=== PATIENT | male | born 1995 | race Caucasian/White ===

== ENCOUNTER 2018-04-04 11:34 | Emergency (ER) | payer BC ==
[2018-04-04] MEDS ORDERED: IBUPROFEN 600 MG TAB PO ONE (12:18)
[2018-04-04] MEDS ORDERED: ACETAMINOPHEN 500 MG TAB PO ONE (12:18)
[2018-04-04] MEDS ORDERED: NS 1,000 ML IV ONE (13:01)
[2018-04-04 13:18] LABS: PLATELET COUNT 181 10^3/uL (150-400)
--- NOTE | 2018-04-04 13:34 | EDPHY ---
H & P Smoking Status: Never smoked Time Seen by Provider: 04/04/18 13:08 HPI/ROS: CHIEF COMPLAINT: Sore throat, neck pain HISTORY OF PRESENT ILLNESS: 22-year-old male presents to the emergency department with sore throat and neck pain since Monday evening. The patient was seen at urgent care yesterday and had a rapid strep screen which was negative. He was started on penicillin and since taking penicillin he feels that his symptoms are worse. He states that he has a sore throat with pain with swallowing. He denies dysphagia. He is complaining of posterior neck pain especially with extension of his neck. Denies rash. He has some mild nasal congestion. No rhinorrhea. No chest pain or difficulty breathing. No abdominal pain. No vomiting or diarrhea. No fevers or chills. REVIEW OF SYSTEMS: Constitutional: No fever, no chills. Eyes: No double or blurry vision. ENT: sore throat. Respiratory: No cough, no shortness of breath. Cardiac: No chest pain. Gastrointestinal: No abdominal pain, vomiting or diarrhea. Genitourinary: No dysuria. Musculoskeletal: No neck or back pain. Skin: No rashes. Neurological: No headache. 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 Initial temperature 37.6 degrees. Nontoxic appearing. Eyes: Pupils equal and round. Extraocular motions are all intact. ENT: Mouth: Mucous membranes moist. Mild posterior pharyngeal injection noted. No exudate. Anterior and cervical lymphadenopathy palpated. Respiratory: No wheezing, rhonchi, or rales, lungs are clear to auscultation. Cardiovascular: Regular rate and rhythm. Gastrointestinal: Abdomen is soft and nontender, no masses, no rebound or guarding, bowel sounds normal. Neurological: Alert and oriented x 3, cranial nerves II through XII grossly intact Skin: Warm and dry, no rashes. Musculoskeletal: Nontender to palpate along the cervical, thoracic or lumbar spine. Neck is supple. No nuchal rigidity. The patient has pain with full extension of his neck. Extremities: Full range of motion and no peripheral edema. Psychiatric: Patient is oriented X 3, there is no agitation. (Carlos,Elina M) Constitutional: Initial Vital Signs Temperature (C) 37.6 C 04/04/18 11:48 Heart Rate 103 H 04/04/18 11:48 Respiratory Rate 16 04/04/18 11:48 Blood Pressure 138/98 H 04/04/18 11:48 O2 Sat (%) 95 04/04/18 11:48 O2 Delivery Mode Room Air Allergies/Adverse Reactions: No Known Allergies Allergy (Unverified 04/04/18 11:47) Home Medications: Medication Instructions Recorded Ibuprofen 04/04/18 Penicillin G Potassium 04/04/18 Medical Decision Making ED Course/Re-evaluation: 22-year-old male presents to the emergency department with sore throat and neck pain. Laboratory studies reveal normal white blood cell count. He had atypical lymphocytes present and therefore Monospot was ordered which was positive. Rapid strep screen was negative. I doubt this patient has bacterial meningitis. I did discuss the pros and cons of performing lumbar puncture and discussed these options with the patient and the patient declined lumbar puncture. I think this is reasonable. He likely has pain in his neck from the posterior lymphadenopathy associated with mononucleosis. He was given precautions including avoided any activity that could cause blunt abdominal trauma for at least a week. He was also given primary care referral. He was given oral Decadron in the emergency department. He was instructed to return to the emergency department if he developed rash, vomiting, fever, or if he seems worse in any way. Case was discussed with Dr. Hermelinda Ren, secondary supervising physician, who did not directly evaluate the patient but agrees with treatment and plan. (Elina Gonzalez) Differential Diagnosis: Including but not limited to mononucleosis, strep pharyngitis, retropharyngeal abscess, peritonsillar abscess, viral syndrome, meningitis (Elina Gonzalez) Other Provider: The patient was evaluated and managed by the Physician [employer]. I discussed the patient's presentation and course with the midlevel provider with them and agree with the evaluation. My co-signature indicates that I have reviewed this chart and I agree with the findings and plan of care as documented. I am the secondary supervising physician. (Hermelinda Ren) - Data Points Laboratory Results: Laboratory Results 04/04/18 13:10 04/04/18 13:10 Medications Given: Discontinued Medications Acetaminophen (Tylenol) 1,000 mg PO EDNOW ONE Stop: 04/04/18 12:19 Last Admin: 04/04/18 12:21 Dose: 1,000 mg Dexamethasone (Decadron) 8 mg PO EDNOW ONE Stop: 04/04/18 15:14 Last Admin: 04/04/18 15:18 Dose: 8 mg Sodium Chloride (Ns) 1,000 mls @ 3,000 mls/hr IV ONCE ONE Stop: 04/04/18 13:20 Last Admin: 04/04/18 13:05 Dose: 1,000 mls Ibuprofen (Motrin) 600 mg PO EDNOW ONE Stop: 04/04/18 12:19 Last Admin: 04/04/18 12:21 Dose: 600 mg Departure - Departure Disposition: Home, Routine, Self-Care Clinical Impression: Mononucleosis Condition: Good Instructions: Mononucleosis (ED) Additional Instructions: Avoid any activity that might put you at risk for blunt abdominal trauma. Return to the emergency department if you develop abdominal pain, vomiting, fever, jaundice, or if you feel worse in any way. Return to the emergency department if you developed difficulty swallowing, difficulty breathing, headache, worsening neck pain, fever, rash, or if you feel worse in any way. Ibuprofen 600 mg every 8 hr as needed for pain. Referrals: Jaret Mueller DO [Doctor of Osteopathy] - 5-7 days, call for appt.
[2018-04-04 15:13] VITALS: BP 126/80
[2018-04-04] MEDS ORDERED: DEXAMETHASONE 4 MG TAB PO ONE (15:13)
== END 2018-04-04 15:40 | disposition home or self-care (01) ==
DX: B27.90 Infectious mononucleosis, unspecified without complication (principal)